=== PATIENT | male | born 1965 | race Hispanic/Latino ===

== ENCOUNTER 2020-09-24 07:55 | Emergency (ER) | payer BC, OTHER ==
[~2020-09-24] VITALS: Ht 172.7 cm; Wt 81.6 kg
[~2020-09-24 07:55] MED LIST: LISINOPRIL
[2020-09-24] MEDS ORDERED: PREDNISONE 20 MG TAB PO STA (08:10)
[2020-09-24] MEDS ORDERED: KETOROLAC TROMETHAMINE 60 MG/2 ML VIAL IM ONE (08:15)
== END 2020-09-24 10:29 | disposition home or self-care (01) ==
LOC: FSED 08:15
DX: M54.41 Lumbago with sciatica, right side (principal); I10 Essential (primary) hypertension; E11.9 Type 2 diabetes mellitus without complications; F17.210 Nicotine dependence, cigarettes, uncomplicated
CPT/HCPCS: 72131; 96372; 99283; J1885; J7512